=== PATIENT | female | born 1995 | race Caucasian/White ===

== ENCOUNTER 2022-07-28 01:55 | Inpatient (IN) | payer BC ==
--- NOTE | ~2022-07-28 | OR ---
[facility] [address] [place], [place] [address] Draft DATE OF OPERATION: 07/28/2022 SURGEON: Zeferino Romo DO PROCEDURE: Primary low transverse C section. UTILITY ASSEMBLER: Michelle Toro MD PREOPERATIVE DIAGNOSES: Non-reassuring heart tones, 40 weeks gestation. POSTOPERATIVE DIAGNOSES: Term delivered, occiput posterior position nuchal cord. BLOOD LOSS: 600 mL. ANESTHESIA: General and epidural. FINDINGS: Viable term male in the left occiput posterior position, weighing 7 pounds 6 ounces with Apgars 8 and 9 at 1 and 5 minutes respectively. Normal bilateral tubes and ovaries. INDICATIONS: The patient is a 27-year-old G2, P-0-0-1-0, who presented to Labor and Delivery with spontaneous labor at 40 weeks and five days gestation. She was admitted, received an epidural and amniotomy was performed after which, heart rate had a prolonged deceleration, which resolved with maternal repositioning to the hands and knees position. Terbutaline was administered from that point on. Attempts at maternal repositioning resulted in prolonged decelerations with baby only tolerating the hands and knees position. However, even in apposition, recurrent variable decelerations were noted and delivery was recommended. Risks, benefits, and alternatives were discussed and questions were answered to the best of my ability. We elected to proceed and consents were signed. DESCRIPTION OF PROCEDURE: PATIENT NAME: JOSIE GREEN OPERATIVE REPORT DATE OF : [birth year] REPORT #: [id number] PHYSICIAN: ZEFERINO ROMO DO PCP: NO PRIMARY CARE PHYSICIAN REPORT IS CONFIDENTIAL AND NOT TO BE RELEASED WITHOUT AUTHORIZATION [facility] [address] [place], [place] [address] Draft She was given 2 g Ancef and 500 mg azithromycin. Due to intolerance to any position other than hands and knees, the patient was taken back to the operating room in hands and knees positioned where she remained until the surgeons were gowned and gloved. was then removed. She was positioned in supine position with a leftward tilt. Abdomen and vagina were prepped with Betadine and she was draped in a sterile fashion. Anesthesia was tested and epidural was found to be inadequate due to baby's prior intolerance to this positioning. Decision was made to proceed urgently with under general anesthesia. A Pfannenstiel incision was made with a scalpel as soon as directed by Anesthesia, and incision was carried down to the underlying layer of fascia which was nicked in midline and extended laterally with Metzenbaum scissors. Inferior margin of the fascia was grasped and elevated with Meme clamps. Underlying rectus muscle was dissected off bluntly and sharply with Metzenbaum scissors. Inferior margin was released. Superior margin was grasped with Meme clamps and underlying rectus muscle was dissected off bluntly and sharply with Bailey scissors. Peritoneum was entered digitally bluntly and was extended superior inferiorly with lateral traction. Obi retractor was placed. Hysterotomy was made with a scalpel at the vesicouterine junction and uterus was entered bluntly digitally. Hysterotomy was extended laterally with gentle digital traction inferiorly and superiorly. Baby's head was elevated without significant difficulty to the hysterotomy through which it was delivered. Nuchal cord x1 was reduced. Cord was immediately doubly clamped and cut. Baby was handed off to waiting nursery team, which included linen grader and respiratory therapist. Segment of cord was collected for cord gases and cord blood was collected for type and Jann and placenta was manually delivered and sent to pathology. Uterus was cleared of clots and debris. Stay suture of 0 Monocryl was placed at the right apex. At the left apex, a small uterine extension was noted. This did not extend through the serosa, closure was started internally in a running locked fashion and at the lateral apex past exteriorly to resume a normal double-layer closure with 0 Monocryl 1st in a running locked fashion and 2nd in an imbricating manner. Following imbrication, excellent hemostasis was noted. Pelvis was suctioned, irrigated and hemostasis was confirmed. Normal tube and ovary. Findings were noted as above. Peritoneum was closed with 2-0 Vicryl in a running fashion. Rectus muscle was reapproximated with 0 Vicryl in a simple interrupted fashion. Left pyramidalis was noted to have a partial tear at its inferior insertion point. This was reapproximated end to end with 0 Vicryl in a bixcqi-[id number] manner. The rectus muscle was suction irrigated with warm sterile saline with excellent hemostasis noted. Fascia was reapproximated with 0 Vicryl working 1st from right apex to midline, then from left apex to midline meeting in the middle in a running fashion. Subcutaneous layer was inspected and suction irrigated with warm sterile saline. Perforating vessels were cauterized with Bovie cautery. Hemostasis was confirmed. This was reapproximated with 3-0 Vicryl in a running fashion. Skin was closed with spencer. Uterus was Crede'd and noted to be firm and free of clots. The patient remained in the OR for placement of TAP blocks by anesthesia. Sponge and instrument counts were correct and following placement of TAP blocks, she was taken to PATIENT NAME: JOSIE GREEN OPERATIVE REPORT DATE OF : [birth year] REPORT #: [id number] PHYSICIAN: ZEFERINO ROMO DO PCP: NO PRIMARY CARE PHYSICIAN REPORT IS CONFIDENTIAL AND NOT TO BE RELEASED WITHOUT AUTHORIZATION [address] [address] Draft recover in LDRP room with PACU team. DO CYNTHIA Nguyen/DYANA /[id number] Copies: ~ PATIENT NAME: JOSIE GREEN OPERATIVE REPORT DATE OF : [birth year] REPORT #: [id number] PHYSICIAN: ZEFERINO ROMO DO PCP: NO PRIMARY CARE PHYSICIAN REPORT IS CONFIDENTIAL AND NOT TO BE RELEASED WITHOUT AUTHORIZATION
[2022-07-28 03:09] VITALS: BP 124/72
--- NOTE | 2022-07-28 03:54 | NUR ---
COVID SWAB DONE TO BOTH NARES AND SENT TO IN HOUSE LAB.
--- NOTE | 2022-07-28 04:43 | PR ---
[facility] [address] [facility] [place], [place] [address] Signed Progress Notes IP Datetime Report Generated by CPN: 07/28/2022 04:43 PROGRESS NOTES: [id number] Procedures: Artificial ROM; Scalp Electrode VITAL SIGNS: [id number] Vital Signs: Reviewed; Within Normal Limits EXAM: [id number] Dilatation: 8.0 Effacement: 100 Station: 0 MEMBRANES: [id number] Membranes Status: Ruptured Comments: Amniotomy performed without difficulty, head well-applied. Prolonged deceleration, IV fluid bolus started, FSE placed, terbutaline administered, pt repositioned to hands and knees with resolution of deceleration. Anticipate continued labor in hands and knees position FETUS A: [id number] FHR Baseline: 115 Variability: Moderate 6-25bpm Accelerations: 15X15 Decelerations: Early FHR Category: Category I Comments on Fetus A: Tracing poorly while sitting for epidural FETUS B: [id number] Signing Physician: Zeferino Romo DO Copies: ~ *Electronically Signed* 07/28/22 0443 ZEFERINO ROMO DO PATIENT NAME: JOSIE GREEN PROGRESS NOTE DATE OF : [birth year] PHYSICIAN: ZEFERINO ROMO DO RPT #: [id number] REPORT IS CONFIDENTIAL AND NOT TO BE RELEASED WITHOUT AUTHORIZATION
--- NOTE | 2022-07-28 05:41 | PR ---
[facility] [address] [facility] [place], [place] [address] Signed Progress Notes IP Datetime Report Generated by CPN: 07/28/2022 05:41 PROGRESS NOTES: [id number] Procedures: Artificial ROM; Scalp Electrode Plan: Continue Present Management VITAL SIGNS: [id number] Vital Signs: Reviewed; Within Normal Limits EXAM: [id number] Dilatation: 8.0 Effacement: 100 Station: 0 MEMBRANES: [id number] Membranes Status: Ruptured Comments: Pt tolerating hands and knees position very well. Continue expectant mgmt at this time FETUS A: [id number] FHR Baseline: 115 Variability: Moderate 6-25bpm Accelerations: 15X15 Decelerations: Early FHR Category: Category I Comments on Fetus A: Tracing poorly while sitting for epidural FETUS B: [id number] Signing Physician: Zeferino Romo DO Copies: ~ *Electronically Signed* 07/28/22 0541 ZEFERINO ROMO DO PATIENT NAME: NORMAJOSIE PROGRESS NOTE DATE OF : [birth year] PHYSICIAN: ZEFERINO ROMO DO [facility] #: [id number] REPORT IS CONFIDENTIAL AND NOT TO BE RELEASED WITHOUT AUTHORIZATION
--- NOTE | 2022-07-28 06:49 | PR ---
[facility] [address] [facility] [place], [place] [address] Signed Progress Notes IP Datetime Report Generated by CPN: 07/28/2022 06:49 PROGRESS NOTES: [id number] Impression: Non-reassuring Heart Rate Procedures: Artificial ROM; Scalp Electrode Plan: Deliver- Section Informed Consent Obtain: Section Delivery; Risks, Benefits and Alternatives Discussed VITAL SIGNS: [id number] Vital Signs: Reviewed; Within Normal Limits EXAM: [id number] Dilatation: 8.0 Effacement: 100 Station: 0 MEMBRANES: [id number] Membranes Status: Ruptured Comments: Pt tolerating hands and knees position very well. Continue expectant mgmt at this time FETUS A: [id number] FHR Baseline: 115 Variability: Moderate 6-25bpm Accelerations: 15X15 Decelerations: Early FHR Category: Category I Comments on Fetus A: Tracing poorly while sitting for epidural FETUS B: [id number] Signing Physician: Zeferino Romo DO Copies: ~ *Electronically Signed* 07/28/22 0649 ZEFERINO ROMO DO PATIENT NAME: JOSIE GREEN PROGRESS NOTE DATE OF : [birth year] PHYSICIAN: ZEFERINO ROMO DO RPT #: [id number] REPORT IS CONFIDENTIAL AND NOT TO BE RELEASED WITHOUT AUTHORIZATION
--- NOTE | 2022-07-28 08:45 | NUR ---
07/28/22 0845 Sheets,Tabitha 0826 PT ARRIVED TO [facility] ROOM 102, ORAL AIRWAY IN PLACE AND JAW THRUST USED OFF AND ON. 6L MASK IN PLACE. 0827 PT FOLLOW COMMANDS TO OPEN MOUTH AND AIRWAY REMOVED. PT EYES REMAIN CLOSED. 0832 PT RECTIVE TO VERBAL STIMULI AND O2 REMOVED. PT NODS "NO" FOR PAIN AND NAUSEA.
[2022-07-28 09:32] VITALS: BP 116/63
--- NOTE | 2022-07-29 08:00 | PR ---
[facility] [address] [facility] [place], [place] [address] Signed PP Progress Notes Datetime Report Generated by CPN: 07/29/2022 08:00 SUBJECTIVE: [id number] Pain: Within Normal Limits Nausea/Vomiting: Denies Bowel Movement: No Vital Signs: [id number] Vital Signs: Reviewed; Within Normal Limits Cardiovascular: Normal Respiratory: Normal Abdomen/Uterus: Normal Lochia: Normal Vulva/Perineum: Not Done CVA Tenderness: Normal Extremities: Normal Incision: Normal Progress: Normal Exam Comments: Fundus firm U-1 nontender. Incision healing well IMPRESSION/PLAN/PROCEDURES: [id number] Impression: Normal Progression Plan: Continue Present Management Progress Notes: Pt seen and examined. Doing well. Ambulating, voiding, and tolerating full diet. Pain and lochia minimal. well. No complaints or concerns. Anticipate d/c tomorrow or Friday. All questions answered. EVault 11.0 Signing Physician: Chavez Nuñez DO Copies: ~ *Electronically Signed* 07/29/22 0800 CHAVEZ NUÑEZ (RAFAEL) DO PATIENT NAME: JOSIE GREEN PROGRESS NOTE DATE OF : [birth year] PHYSICIAN: CHAVEZ NUÑEZ (RAFAEL) DO RPT #: [id number] REPORT IS CONFIDENTIAL AND NOT TO BE RELEASED WITHOUT AUTHORIZATION
--- NOTE | 2022-07-30 17:03 | PR ---
[facility] [address] [facility] [place], [place] [address] Signed PP Progress Notes Datetime Report Generated by CPN: 07/30/2022 17:03 SUBJECTIVE: [id number] Pain: Within Normal Limits Nausea/Vomiting: Denies Flatus: Yes Bowel Movement: No Vital Signs: [id number] Vital Signs: Reviewed; Within Normal Limits Cardiovascular: Normal Respiratory: Normal Abdomen/Uterus: Normal Lochia: Normal Vulva/Perineum: Not Done Breasts: Not Done CVA Tenderness: Normal Extremities: Normal Incision: Normal Progress: Normal Exam Comments: Fundus firm U-2 nontender. Incision healing well IMPRESSION/PLAN/PROCEDURES: [id number] Impression: Normal Progression Plan: Remove Guillermo; Discharge Procedures: None Progress Notes: Pt seen and examined. Doing well. Ambulating, voiding, and tolerating full diet. Pain and lochia minimal. well. No concerns. Desires d/c home. Undecided on pp contraception but likely planning natural family planning. Reviewed d/c medications and instructions. All questions answered. Signing Physician: Chavez Nuñez DO Copies: ~ *Electronically Signed* 07/30/22 5978 CHAVEZ NUÑEZ (RAFAEL) DO PATIENT NAME: JOSIE GREEN PROGRESS NOTE DATE OF : [birth year] PHYSICIAN: CHAVEZ NUÑEZ (JD) DO RPT #: [id number] REPORT IS CONFIDENTIAL AND NOT TO BE RELEASED WITHOUT AUTHORIZATION
--- NOTE | 2022-07-31 11:25 | PATH ---
[facility] [address] [place], [place] [address] Signed SPECIMEN(S): A PLACENTA SPECIMEN SOURCE: A. PLACENTA CLINICAL HISTORY: intolerance to labor. FINAL PATHOLOGIC DIAGNOSIS: Placenta: - Mature 500 gm placenta with a three-vessel umbilical cord. - Acute chorionitis and focal amnionitis. - Negative for significant funisitis. - Villous and perivillous fibrin deposition and calcification. - Negative for significant placental disc infarction. JVR:[facility]:C2NR MICROSCOPIC EXAMINATION: Histologic sections of all submitted blocks are examined by light microscopy. These findings, together with the gross examination, support the pathologic diagnosis. GROSS DESCRIPTION: The specimen, labeled and designated "Stefania placenta," is received in formalin and consists of mauricio discoid placenta with the following parameters: Umbilical cord: Insertion eccentric, measurement 10.0 x 1.2 cm; trivascular. Additional cord segment measures 8.0 x 1.2 cm. Cord coiling index (per 10 cm): Eight. Lesions: Not grossly identified. Membranes: Insertion site: Marginal, li/translucent. Intact. Other: Not grossly identified. Chorionic Plate: Normal radiating vascular pattern, blue-purple and shiny. Lesions: Not grossly identified. Other: Not grossly identified. Maternal Surface: Normal cotyledons, intact. Lesions: Not grossly identified. Measurement: 16.5 x 16.3 x 1.5 cm. 500 g Cut Surface: Maroon and spongy. Lesions: Not grossly identified. Basal plate fibrin 0.1 cm in thickness. Other Findings: Not grossly identified. Cassette Summary: (A1) membranes and umbilical cord (A2) placenta parenchyma PATIENT NAME: JOSIE GREEN PATHOLOGY DATE OF : [birth year] REPORT #: [id number] PHYSICIAN: EITAN KING PCP: NO PRIMARY CARE PHYSICIAN REPORT IS CONFIDENTIAL AND NOT TO BE RELEASED WITHOUT AUTHORIZATION [facility] [address] [place], [place] [address] Signed (A3) placenta parenchyma (A4) placenta parenchyma JS (under the direct supervision of a pathologist) The Gross Description was prepared using a voice recognition system. The report was reviewed for accuracy; however, sound-alike word errors, addition and/or deletions may occur. If there is any question about this report, please contact Client Services. PERFORMING LABORATORY: The technical component was performed by [facility], [address] [place] [id number] (CLIA# [id number]). Professional interpretation was performed by [facility] - [address] [address] (CLIA#: [id number]). Diagnostician: Evangelista Finn MD Pathologist Electronically Signed 07/31/2022 Copies: ~ PATIENT NAME: JOSIE GREEN PATHOLOGY DATE OF : [birth year] REPORT #: [id number] PHYSICIAN: EITAN KING PCP: NO PRIMARY CARE PHYSICIAN REPORT IS CONFIDENTIAL AND NOT TO BE RELEASED WITHOUT AUTHORIZATION
== END 2022-07-30 17:35 | disposition home or self-care (01) | DRG 788 ==
LOC: FBCO → FBC 02:41
PROVIDERS: ADMIT Obstetrics & Gynecology; ATTEND Obstetrics & Gynecology
PROC: 10907ZC Drainage of Amniotic Fluid, Therapeutic from Products of Conception, Via Natural or Artificial Opening (ICD-10-PCS; 2022-07-28)
PROC: 10D00Z1 Extraction of Products of Conception, Low, Open Approach (ICD-10-PCS; principal; 2022-07-28 06:59)
DX: O76 Abnormality in fetal heart rate and rhythm complicating labor and delivery (principal); O69.81X0 Labor and delivery complicated by cord around neck, without compression, not applicable or unspecified; Z3A.40 40 weeks gestation of pregnancy; Z37.0 Single live birth; Z20.822 Contact with and (suspected) exposure to COVID-19; Z67.20 Type B blood, Rh positive; O48.0 Post-term pregnancy; Z98.890 Other specified postprocedural states; Z79.899 Other long term (current) drug therapy
CPT/HCPCS: 01961; 36415; 82803; 85027; 86850; 86900; 86901; 87502; A9270; C9803; J0330; J0456; J0690; J1885; J2274; J2370; J2590; J2704; J2795; J7121; U0003